=== PATIENT | male | born 1980 ===

== ENCOUNTER 2020-03-26 08:34 | Emergency (ER) | payer BC, OTHER ==
--- NOTE | 2020-03-26 09:46 | UC ---
Throat Pain/Nasal Chad HPI - HPI Summary HPI Summary: ONSET LAST NIGHT OF SORE THROAT, PAIN WITH SWALLOWING, FEVER 100.4 AND VERY MILD NASAL CONGESTION. STOMACH FEELS SLIGHTLY UNSETTLED BUT NO VOMITING OR DIARRHEA. HAS MILD BODY ACHES AND HEADACHE. NO COUGH. UP-TO-DATE FLU SHOT THIS SEASON. NO ANTIPYRETICS TAKEN THIS MORNING. WORKS AT THE [employer]. - History of Current Complaint Chief Complaint: UCGeneralIllness Stated Complaint: FEVER SORE THROAT NAUSEA Time Seen by Provider: 03/26/20 09:14 Hx Obtained From: Patient Onset/Duration: Gradual Onset, Lasting Hours, Still Present Severity: Moderate Pain Intensity: 4 Pain Scale Used: 0-10 Numeric Cough: None Associated Signs & Symptoms: Positive: Fever. Negative: Vomiting - Allergies/Home Medications Allergies/Adverse Reactions: Allergies Allergy/AdvReac Type Severity Reaction Status Date / Time No Known Allergies Allergy Verified 03/26/20 08:47 Home Medications: Home Medications Amoxicillin PO (*) [Amoxicillin 500 MG CAP*] 500 mg PO Q12H #20 cap 03/26/20 [Rx ] Sertraline* [Zoloft*] 1 tab PO DAILY 03/26/20 [History Confirmed 03/26/20] PMH/Surg Hx/FS Hx/Imm Hx Psychological History: Depression - Surgical History Surgical History: Yes Surgery Procedure, Year, and Place: WISDOM TOOTH EXTRACTION - Family History Known Family History: Positive: Hypertension - Social History Alcohol Use: Weekly Substance Use Type: None Smoking Status (MU): Never Smoked Tobacco Review of Systems All Other Systems Reviewed And Are Negative: Yes Constitutional: Positive: Fever, Chills ENT: Positive: Sore Throat, Nasal Discharge Respiratory: Positive: Negative Cardiovascular: Positive: Negative Gastrointestinal: Positive: Nausea. Negative: Vomiting, Diarrhea Musculoskeletal: Positive: Myalgia Neurological/Mental Status: Positive: Headache Physical Exam Triage Information Reviewed: Yes Appearance: Well-Appearing, No Pain Distress, Well-Nourished Vital Signs: Vital Signs (72 hours) 03/26/20 10:09 Temperature 100.3 F Pulse Rate 92 Respiratory 16 Rate Blood Pressure 127/78 (mmHg) O2 Sat by Pulse 99 Oximetry Laboratory Tests 03/26/20 03/26/20 10:07 10:13 Influenza A (Rapid) Negative Influenza B (Rapid) Negative Group A Strep Rapid Positive H Vital Signs Reviewed: Yes Eyes: Positive: Conjunctiva Clear ENT: Positive: Hearing grossly normal, Pharyngeal erythema, Tonsillar exudate. Negative: Tonsillar swelling Neck: Positive: Supple, Nontender, No Lymphadenopathy Respiratory Exam: Normal Cardiovascular Exam: Normal Abdomen Description: Positive: Nontender, Soft Musculoskeletal: Positive: No Edema Neurological: Positive: Alert Psychological: Positive: Age Appropriate Behavior Skin: Negative: Rashes Throat Pain/Nasal Course/Dx - Course Course Of Treatment: STREP POSITIVE. WILL TREAT WITH AMOXICILLIN. FLU NEGATIVE. TESTING FOR COVID19 DONE TODAY. PATIENT BEING DISCHARGED HOME TO SELF- ISOLATION AND WILL BE CONTACTED BY HD WITH RESULTS. CONTACT/DROPLET PRECAUTIONS TAKEN BY MYSELF DURING ENCOUNTER. I COLLECTED BOTH VITAL SIGNS AND SWABS. - Differential Dx/Diagnosis Provider Diagnosis: Strep throat Discharge ED - Sign-Out/Discharge Documenting (check all that apply): Patient Departure All imaging exams completed and their final reports reviewed: No Studies - Discharge Plan Condition: Stable Disposition: HOME Prescriptions: Amoxicillin PO (*) [Amoxicillin 500 MG CAP*] 500 mg PO Q12H #20 cap Patient Education Materials: Strep Throat (ED) Forms: COVID-19 Tested & Isolation Referrals: Kang Mosquera MD [Primary Care Provider] - If Needed Additional Instructions: STREP POSITIVE. TAKE ANTIBIOTICS FOR THE FULL 10 DAYS. OTC CHLORASEPTIC OR CEPACOL LOZENGES AND/OR IBUPROFEN FOR SORE THROAT NEEDED ONCE SYMPTOMS RESOLVED - NEW TOOTHBRUSH DO NOT SHARE FOOD, DRINK, UTENSILS FLU NEGATIVE. GIVEN YOUR SYMPTOMS TESTING FOR COVID-19 COMPLETED TODAY. YOU SHOULD EXPECT RESULTS IN 3-7 DAYS. YOU ARE BEING DISCHARGED TO SELF-ISOLATION AT HOME. GET REST AND STAY WELL HYDRATED. THE HEALTH DEPARTMENT WILL BE FOLLOWING UP WITH YOU WHEN YOUR RESULTS ARE AVAILABLE. CALL 911 IF YOU DEVELOP WORSENING RESPIRATORY DISTRESS, FEVER, PAIN OR ANY OTHER CONCERNING SYMPTOMS. - Billing Disposition and Condition Condition: STABLE Disposition: Home
[2020-03-26 10:10] VITALS: BP 127/78
[2020-03-26 10:25] LABS: Influenza A Molecular Negative (Negative); Influenza B Molecular Negative (Negative)
== END 2020-03-26 10:38 | disposition home or self-care (01) ==
LOC: UCEAST 08:34
DX: J02.0 Streptococcal pharyngitis (principal); Z20.828 Contact with and (suspected) exposure to other viral communicable diseases; F32.9 Major depressive disorder, single episode, unspecified; Z79.899 Other long term (current) drug therapy
CPT/HCPCS: 87635; 87651; 99212; G0463; U0003